=== PATIENT | female | born 1985 | race Hispanic/Latino ===

== ENCOUNTER 2019-09-27 18:21 | Emergency (ER) | payer OTHER ==
[~2019-09-27 18:21] MED LIST: PRAVAST
== END 2019-09-27 20:16 | disposition home or self-care (01) ==
LOC: EDH 18:21
DX: J06.9 Acute upper respiratory infection, unspecified (principal); Z90.710 Acquired absence of both cervix and uterus
CPT/HCPCS: 36415; 87633; 87804